=== PATIENT | female | born 1980 | race African-American/Black ===

== ENCOUNTER 2017-06-15 09:52 | Emergency (ER) | payer SELFPAY ==
[~2017-06-15] VITALS: Ht 167.6 cm; Wt 59.9 kg
[2017-06-15 10:18] VITALS: BP 111/71
== END 2017-06-15 10:33 | disposition home or self-care (01) ==
LOC: ER 09:53
DX: J06.9 Acute upper respiratory infection, unspecified (principal); F17.200 Nicotine dependence, unspecified, uncomplicated
CPT/HCPCS: 99283; A4606; Z7610

== ENCOUNTER 2017-10-24 13:28 | Emergency (ER) | payer SELFPAY ==
[~2017-10-24] VITALS: Ht 167.6 cm; Wt 59.0 kg
[2017-10-24 15:55] VITALS: BP 124/65
[2017-10-24] MEDS ORDERED: IBUPROFEN 600 MG TABLET PO ONE ×2 (16:00→16:08)
== END 2017-10-24 16:10 | disposition home or self-care (01) ==
LOC: ER 13:29
DX: S39.012A Strain of muscle, fascia and tendon of lower back, initial encounter (principal); F17.200 Nicotine dependence, unspecified, uncomplicated; V49.49XA Driver injured in collision with other motor vehicles in traffic accident, initial encounter; Y93.89 Activity, other specified; Y92.413 State road as the place of occurrence of the external cause; Y99.8 Other external cause status
CPT/HCPCS: A4606; Z7610